=== PATIENT | female | born 1940 | race Caucasian/White ===

== ENCOUNTER → 2018-03-31 | Outpatient (CLI) | payer OTHER | LOC: FIMAGING 09:45 | PROVIDERS: ATTEND Family Medicine | DX: Z13.820 Encounter for screening for osteoporosis (principal); M81.0 Age-related osteoporosis without current pathological fracture; E83.52 Hypercalcemia; R03.0 Elevated blood-pressure reading, without diagnosis of hypertension; Z79.899 Other long term (current) drug therapy ==

== ENCOUNTER → 2018-04-23 | Outpatient (CLI) | payer OTHER | LOC: FIMAGING 08:27 | PROVIDERS: ATTEND Family Medicine | DX: R92.0 Mammographic microcalcification found on diagnostic imaging of breast (principal) ==

== ENCOUNTER → 2018-05-18 | Day surgery (SDC) | payer OTHER ==
[~2018-05-18] MED LIST: BUPIVACAINE 0.5% 10 ML SDV ONE; LIDOCAINE 1% 300 MG/30 ML SDV ONE; THROMBIN (BOVINE) 5,000 UNIT VIAL TP ONE
== END | disposition home or self-care (01) ==
LOC: FIMAGING 07:19
PROVIDERS: ATTEND Family Medicine
PROC: 0HBT3ZX Excision of Right Breast, Percutaneous Approach, Diagnostic (ICD-10-PCS; principal; 2018-05-18)
DX: D05.11 Intraductal carcinoma in situ of right breast (principal)

== ENCOUNTER 2018-06-10 05:50 | Day surgery (SDC) | payer OTHER ==
[2018-06-10] MEDS ORDERED: CLINDAMYCIN 900 MG/DEXTROSE 50 ML IV ONE (06:40)
[2018-06-10] MEDS ORDERED: LR 1,000 ML IV ONE (06:41)
[2018-06-10] MEDS ORDERED: BUPIVACAINE 0.25% 30 ML SDV ONE (07:11)
[2018-06-10] MEDS ORDERED: THROMBIN (BOVINE) 5,000 UNIT VIAL TP ONE (07:12)
[2018-06-10] MEDS ORDERED: LIDOCAINE 1% 300 MG/30 ML SDV ONE (07:40)
--- NOTE | 2018-06-10 07:43 | PDHPUP ---
History & Physical Update H&P update statement: This history and physical update is based on an assessment of the patient which was completed after admission or registration (within 24 hours), but prior to the surgery/procedure. H&P update: H&P reviewed & patient examined, no change in patient's condition since H&P completed
[2018-06-10] MEDS ORDERED: fentaNYL 100 MCG/2 ML INJ ONE (09:38)
[2018-06-10] MEDS ORDERED: PROPOFOL 200 MG/20 ML VIAL ONE (09:39)
[2018-06-10] MEDS ORDERED: ONDANSETRON 4 MG/2 ML VIAL ONE (09:42)
[2018-06-10] MEDS ORDERED: METOCLOPRAMIDE 10 MG/2 ML VIAL ONE (09:42)
[2018-06-10] MEDS ORDERED: PHENYLEPHRINE HCL 100 MCG/ML SYR ONE (10:01)
--- NOTE | 2018-06-10 10:05 | PDANEPAE ---
ANE Past Medical History - Cardiovascular History Hx Hypertension: Yes Hx Arrhythmias: No Hx Chest Pain: No Hx Coronary Artery / Peripheral Vascular Disease: No Hx CHF / Valvular Disease: No Hx Palpitations: No Cardiovascular History Comment: pcp monitors bp medications. recent stress test at [facility] - Pulmonary History Hx COPD: No Hx Asthma/Reactive Airway Disease: No Hx Recent Upper Respiratory Infection: No Hx Oxygen in Use at Home: No Hx Sleep Apnea: No Sleep Apnea Screening Result - Last Documented: Negative - Neurologic History Hx Cerebrovascular Accident: No Hx Seizures: No Hx Dementia: No - Endocrine History Hx Diabetes: No - Renal History Hx Renal Disorders: No - Liver History Hx Hepatic Disorders: No - Neurological & Psychiatric Hx Hx Neurological and Psychiatric Disorders: No Neurological / Psychiatric History Comment: caregiver for with alzheimers - Cancer History Hx Cancer: Yes Cancer History Comment: current right breast ca - Congenital Disorder History Hx Congenital Disorders: No - GI History Hx Gastrointestinal Disorders: No - Other Health History Other Health History: wears reading glasses. dry skin. osteoporosis. arthritic pain- generalized - Chronic Pain History Chronic Pain: Yes (generalized achiness) - Surgical History Prior Surgeries: partial hysterectomy in s. broken right shoulder repair 2009. breast biopsy ANE Review of Systems Review of Systems: - Exercise capacity METS (RN): 3 METS ANE Patient History - Allergies Allergies/Adverse Reactions: Penicillins Allergy (Verified 06/09/18 16:12) hives- last time she had it was in [facility] - Home Medications Home Medications: ACETAMINOPHEN 06/09/18 [Last Taken 06/06/18] Amlodipine Besylate 06/09/18 [Last Taken 06/10/18] Aspirin 81mg (*) BID 06/09/18 [Last Taken 06/09/18] Herbals/Supplements -Info Only 06/09/18 [Last Taken 06/09/18] Lisinopril BID 06/09/18 [Last Taken 06/10/18] Lovastatin 06/09/18 [Last Taken 06/09/18] MIRTAZAPINE HS PRN 06/09/18 [Last Taken 06/09/18] - NPO status NPO Since - Liquids (Date): 06/10/18 NPO Since - Liquids (Time): 04:30 NPO Since - Solids (Date): 06/09/18 NPO Since - Solids (Time): 22:00 - Smoking Hx Smoking Status: Never smoked - Family Anes Hx Family Hx Anesthesia Complications: none ANE Labs/Vital Signs - Vital Signs Blood Pressure: 147/89 Heart Rate: 59 Respiratory Rate: 16 O2 Sat (%): 97 Height: 165.1 cm Weight: 70.307 kg ANE Physical Exam - Airway Mallampati Score: Class 2 ANE Anesthesia Plan Anesthesia Plan: GA w LMA Urgent/Emergent Case: Aubrey nagel completed preop but documented later for safe timely pt care
[2018-06-10] MEDS ORDERED: fentaNYL 100 MCG/2 ML INJ IVP PRN (10:33)
[2018-06-10] MEDS ORDERED: NALOXONE HCL 0.4 MG/ML INJ IVP PRN (10:33)
[2018-06-10] MEDS ORDERED: PHENYLEPHRINE HCL 100 MCG/ML SYR IVP PRN (10:33)
[2018-06-10] MEDS ORDERED: ONDANSETRON 4 MG/2 ML VIAL IVP PRN (10:33)
--- NOTE | 2018-06-10 11:12 | POSTOPPROG ---
Post Op Note Date of Operation: 06/10/18 Surgeon: Tunde Lugo Robotics Application Engineer: Moose Anesthesiologist: Radha Anesthesia: GET(General Endotracheal) Pre-op Diagnosis: R DCIS Post-op Diagnosis: same Indication: same Procedure: R breast lumpectomy with needle localization Findings: Got needle, per radiology Inf/Abcess present in the surg proc area at time of surgery?: No Depth: Deep Incisional (Fascial) EBL: Minimal Specimen(s): Right breast lump Additional superior margin Additional medial margin
[2018-06-10 12:06] VITALS: BP 124/62
--- NOTE | 2018-06-11 09:13 | POSTANESTH ---
Post Anesthetic Evaluation Cardiovascular Status: Normal, Stable, Similar to Pre-Op Cond Respiratory Status: Normal, Stable, Similar to Pre-op Cond. Level of Consciousness/Mental Status: Can Participate in Eval, Alert and Oriented Pain Control: Adequate, Prn Tx Ordered Nausea/Vomiting Control: Adequate, Prn Tx Ordered Complications Possibly Related to Anesthesia: None Noted
--- NOTE | 2018-06-12 17:55 | GOP ---
[f rep st] OPERATIVE REPORT DATE OF OPERATION: 06/10/2018 SURGEON: Tunde Lugo MD INSPECTOR REPAIRER S[place]STONE: Eugenie Virk NP. ANESTHESIA: Dr. Martinez. PREOPERATIVE DIAGNOSIS: Right breast ductal carcinoma in situ. POSTOPERATIVE DIAGNOSIS: Right breast ductal carcinoma in situ. PROCEDURE PERFORMED: Needle localization lumpectomy, placement of fiducials. FINDINGS: The patient was found to have the targeted lesion in the specimen. DESCRIPTION OF PROCEDURE: Patient was taken to the operating room where she received a satisfactory general laryngeal mask anesthesia by Dr. Martinez. She was placed in supine position and prepped and d raped in the usual sterile fashion with the right arm outstretched on an arm board. A curvilinear in cision was made near the needle insertion site, and a generous excisional biopsy was taken all down f ull thickness around the localization needle. Hemostasis was obtained with 3-0 Vicryl suture ligatur es and/or electrocautery. The specimen was removed and sent to x-ray and confirmed to contain the ta rgeted lesion and clip. Additional margin was taken superiorly and medially and appropriately labele d. Hemostasis was assured. The wound was infiltrated with 0.5% Marcaine. Some fiducial clips were placed in the area, and breast tissue was approximated in several layers with 3-0 Vicryl interrupted sutures and a mammoplastic technique. The skin was closed with 4-0 Monocryl subcuticular stitch. Al l layers had been infiltrated with 0.5% Marcaine and some topical thrombin had been placed in the bio psy cavity. She tolerated the procedure well. There were no complications. She was taken to [facility] in good condition. /[id number]/MODL
== END 2018-06-10 12:14 | disposition home or self-care (01) ==
LOC: FIMAGING 05:50
PROVIDERS: ATTEND Surgery
PROC: 0HBT0ZZ Excision of Right Breast, Open Approach (ICD-10-PCS; principal; 2018-06-10 10:15)
DX: D05.81 Other specified type of carcinoma in situ of right breast (principal)
CPT/HCPCS: J2370; J2405; J2704; J2765; J3010

== ENCOUNTER → 2019-04-06 | Outpatient (CLI) | payer OTHER | LOC: FIMAGING 10:39 ==